=== PATIENT | male | born 1985 | race Caucasian/White ===

== ENCOUNTER 2023-03-07 09:27 | Inpatient (IN) | payer SELFPAY ==
[2023-03-07] MEDS ORDERED: Sodium Chloride 0.9% 1,000 ML IV ONE ×3 (09:42→13:18)
[2023-03-07 09:50] LABS: HEMATOCRIT 48.1 % (38.0-50.0); HEMOGLOBIN 14.8 g/dL (13.0-17.0); MEAN CORPUSCULAR HEMOGLOBIN 31.2 pg (27.0-32.0); MEAN CORPUSCULAR HGB CONC 30.8 g/dL (31.0-37.0); MEAN CORPUSCULAR VOLUME 101.3 fL (80.0-98.0); NRBC ABSOLUTE 0 K/uL; PLATELET COUNT,PLT 320 K/uL (150-400); RED BLOOD CELL COUNT 4.75 M/uL (4.50-5.90); WHITE BLOOD CELL COUNT,WBC 47.05 K/uL (4.0-11.0)
[2023-03-07 10:15] LABS: BAND ABSOLUTE MAN 2.8; BAND PERCENT MAN 6 %; LYMPHOCYTES ABSOLUTE MAN 2.8 (0.6-2.4); LYMPHOCYTES PERCENT MAN 6 % (16.0-40.0); METAMYELOCYTE ABSOLUTE MAN 1.9; METAMYELOCYTE PERCENT MAN 4 %; MONOCYTES ABSOLUTE MAN 5.2 (0.0-0.8); MONOCYTES PERCENT MAN 11 % (0.0-15.0); MYELOCYTE ABSOLUTE MAN 0.9; MYELOCYTE PERCENT MAN 2 %; SEG NEUTROPHILS ABSOLUTE MAN 33.4 (1.4-5.7); SEG NEUTROPHILS PERCENT MAN 71 % (48.0-80.0)
[2023-03-07 10:35] LABS: A/G RATIO 1.2 (0.9-1.6); ALBUMIN 4.5 g/dL (3.4-5.0); BILIRUBIN TOTAL 0.7 mg/dL (0.2-1.0); CALCIUM 9.2 mg/dL (8.5-10.1); CARBON DIOXIDE,CO2 5.3 mmol/L (21.0-32.0); CREATININE 2.7 mg/dL (0.8-1.3); EST CRCL DRUG DOSING (CG) 46.44 mL/min; MAGNESIUM 3.1 mg/dL (1.8-2.4); PHOSPHORUS 8.4 mg/dL (2.6-4.7); PROTEIN TOTAL,TP 8.3 g/dL (6.4-8.2)
[2023-03-07 10:35] LABS: APPEARANCE,URINE CLEAR; BILIRUBIN,URINE NEGATIVE (NEGATIVE); COLOR,URINE YELLOW; GLUCOSE,URINE >=1000 mg/dL (NEGATIVE); KETONES,URINE 40 mg/dL (NEGATIVE); LEUKOCYTE ESTERASE,URINE NEGATIVE (NEGATIVE); NITRITE,URINE NEGATIVE (NEGATIVE); OCCULT BLOOD,URINE SMALL (NEGATIVE); PH,URINE 5.5 (5.0-8.0); PROTEIN,URINE NEGATIVE (NEGATIVE); UROBILINOGEN,URINE 0.2 EU/dL (<2.0)
[2023-03-07 10:42] LABS: BACTERIA,URINE FEW (NEGATIVE); EPITHELIAL CELLS,URINE OCCASIONAL (NONE-FEW); RBC,URINE 0-2 (0-2/HPF); WBC,URINE 0-2 (0-5/HPF)
[2023-03-07 10:49] LABS: POTASSIUM,K 7.2 mmol/L (3.5-5.1)
[2023-03-07] MEDS: Insulin Regular in 0.9 % NACL 100 ML IV SCH ×2 (10:52→17:33)
[2023-03-07] MEDS ORDERED: Sodium Chloride 0.9% 1,000 ML IV SCH ×3 (11:15→19:45)
[2023-03-07 11:42] LABS: CALCIUM 8.5 mg/dL (8.5-10.1); CREATININE 2.7 mg/dL (0.8-1.3); EST CRCL DRUG DOSING (CG) 46.44 mL/min
[2023-03-07 11:57] LABS: CARBON DIOXIDE,CO2 4.4 mmol/L (21.0-32.0)
[2023-03-07] MEDS ORDERED: Ondansetron 4 MG/2 ML SDV IVPUSH PRN (12:41)
[2023-03-07 12:50] LABS: BASE EXCESS ARTERIAL -25.6 (-2.0-3.0); BICARBONATE,ARTERIAL 4 mEq/L (22-26); PCO2 ARTERIAL 16 mmHG (35-45); PO2 ARTERIAL 107 mmHG (80-105)
[2023-03-07] MEDS: Enoxaparin 40 MG/0.4 ML Syringe SUBCUT SCH (13:53)
[2023-03-07 13:59] LABS: CALCIUM 8.5 mg/dL (8.5-10.1); CARBON DIOXIDE,CO2 6.9 mmol/L (21.0-32.0); CREATININE 2.7 mg/dL (0.8-1.3); EST CRCL DRUG DOSING (CG) 46.44 mL/min; POTASSIUM,K 5.5 mmol/L (3.5-5.1)
[2023-03-07 15:46] LABS: CALCIUM 8.4 mg/dL (8.5-10.1); CARBON DIOXIDE,CO2 9.4 mmol/L (21.0-32.0); CREATININE 2.5 mg/dL (0.8-1.3); EST CRCL DRUG DOSING (CG) 50.15 mL/min
[2023-03-07 16:03] LABS: HEMOGLOBIN A1C 7.3 %
[2023-03-07 17:54] LABS: CALCIUM 8.4 mg/dL (8.5-10.1); CARBON DIOXIDE,CO2 9.2 mmol/L (21.0-32.0); CREATININE 2.1 mg/dL (0.8-1.3); EST CRCL DRUG DOSING (CG) 59.7 mL/min; POTASSIUM,K 4.9 mmol/L (3.5-5.1)
[2023-03-07 19:45] LABS: CALCIUM 8.4 mg/dL (8.5-10.1); CARBON DIOXIDE,CO2 14.6 mmol/L (21.0-32.0); EST CRCL DRUG DOSING (CG) 62.69 mL/min; POTASSIUM,K 4.4 mmol/L (3.5-5.1)
[2023-03-07] MEDS: Dextrose 5%-0.45% NaCl 1,000 ML IV SCH (22:16)
[2023-03-07 23:48] LABS: CALCIUM 8.3 mg/dL (8.5-10.1); CARBON DIOXIDE,CO2 18.3 mmol/L (21.0-32.0); CREATININE 1.7 mg/dL (0.8-1.3); EST CRCL DRUG DOSING (CG) 73.75 mL/min; POTASSIUM,K 4.5 mmol/L (3.5-5.1)
[2023-03-08 04:10] LABS: CALCIUM 8.3 mg/dL (8.5-10.1); CARBON DIOXIDE,CO2 20.2 mmol/L (21.0-32.0); CREATININE 1.5 mg/dL (0.8-1.3); EST CRCL DRUG DOSING (CG) 83.59 mL/min; POTASSIUM,K 4.3 mmol/L (3.5-5.1)
[2023-03-08] MEDS: Dextrose 5%-0.45% NaCl 1,000 ML IV SCH ×2 (04:38→11:21)
[2023-03-08 08:42] LABS: BASOPHILS PERCENT AUTO 0.1 % (0.0-1.5); EOSINOPHILS PERCENT AUTO 0.1 % (0.0-7.0); HEMATOCRIT 35.8 % (38.0-50.0); HEMOGLOBIN 12.5 g/dL (13.0-17.0); LYMPHOCYTES ABSOLUTE AUTO 1.2 K/uL (0.6-2.4); LYMPHOCYTES PERCENT AUTO 5.4 % (16.0-40.0); MEAN CORPUSCULAR HEMOGLOBIN 31.3 pg (27.0-32.0); MEAN CORPUSCULAR HGB CONC 34.9 g/dL (31.0-37.0); MEAN CORPUSCULAR VOLUME 89.7 fL (80.0-98.0); MONOCYTES ABSOLUTE AUTO 2.5 K/uL (0.0-0.8); MONOCYTES PERCENT AUTO 11.6 % (0.0-15.0); NEUTROPHILS ABSOLUTE AUTO 17.7 K/uL (1.4-5.7); NEUTROPHILS PERCENT AUTO 82.8 % (48.0-80.0); NRBC ABSOLUTE 0 K/uL; PLATELET COUNT,PLT 178 K/uL (150-400); RED BLOOD CELL COUNT 3.99 M/uL (4.50-5.90); WHITE BLOOD CELL COUNT,WBC 21.36 K/uL (4.0-11.0)
[2023-03-08 08:55] LABS: CALCIUM 8.4 mg/dL (8.5-10.1); CARBON DIOXIDE,CO2 23.8 mmol/L (21.0-32.0); CREATININE 1.4 mg/dL (0.8-1.3); EST CRCL DRUG DOSING (CG) 89.56 mL/min; POTASSIUM,K 4.5 mmol/L (3.5-5.1)
[2023-03-08] MEDS ORDERED: 50% Dextrose in Water 50 ML Syringe IVPUSH PRN (09:28)
[2023-03-08] MEDS ORDERED: Glucagon,Human Recombinant 1 MG Vial IM PRN (09:28)
[2023-03-08] MEDS ORDERED: Insulin Detemir 100 Units/ML 3 ML Pen SUBCUT SCH (09:30)
[2023-03-08] MEDS ORDERED: Insulin Glargine,Hum.Rec.Anlog 100 UNIT/ML 3 ML Pen SUBCUT SCH (10:00)
[2023-03-08 10:31] LABS: APPEARANCE,URINE CLEAR; COLOR,URINE YELLOW; GLUCOSE,URINE 250 mg/dL (NEGATIVE); KETONES,URINE >=80 mg/dL (NEGATIVE); LEUKOCYTE ESTERASE,URINE NEGATIVE (NEGATIVE); NITRITE,URINE NEGATIVE (NEGATIVE); OCCULT BLOOD,URINE TRACE-INTACT (NEGATIVE); PROTEIN,URINE NEGATIVE (NEGATIVE); UROBILINOGEN,URINE 0.2 EU/dL (<2.0)
[2023-03-08 10:33] LABS: BILIRUBIN,URINE SMALL (NEGATIVE)
[2023-03-08 10:52] LABS: BACTERIA,URINE RARE (NEGATIVE); EPITHELIAL CELLS,URINE RARE (NONE-FEW); RBC,URINE 0-2 (0-2/HPF); WBC,URINE 0-1 (0-5/HPF)
[2023-03-08 11:05] LABS: MAGNESIUM 2.5 mg/dL (1.8-2.4); PHOSPHORUS 1.8 mg/dL (2.6-4.7)
[2023-03-08] MEDS: Insulin Regular in 0.9 % NACL 100 ML IV SCH (11:25)
[2023-03-08] MEDS ORDERED: Insulin Aspart 100 Units/ML 3 ML Pen SUBCUT SCH (11:30)
[2023-03-08] MEDS: Insulin Aspart 100 Units/ML 3 ML Pen SUBCUT SCH ×4 (11:41→21:42)
[2023-03-08] MEDS: Insulin Glargine,Hum.Rec.Anlog 100 UNIT/ML 3 ML Pen SUBCUT SCH ×2 (11:41→21:42)
[2023-03-08] MEDS: Enoxaparin 40 MG/0.4 ML Syringe SUBCUT SCH (12:49)
[2023-03-08] MEDS: Sodium Chloride 0.45% 1,000 ML IV SCH (18:01)
[2023-03-09] MEDS: Sodium Chloride 0.45% 1,000 ML IV SCH (03:51)
[2023-03-09 05:49] LABS: BASOPHILS PERCENT AUTO 0.2 % (0.0-1.5); EOSINOPHILS ABSOLUTE AUTO 0.1 K/uL (0.0-0.7); EOSINOPHILS PERCENT AUTO 1.1 % (0.0-7.0); HEMATOCRIT 34.4 % (38.0-50.0); HEMOGLOBIN 11.9 g/dL (13.0-17.0); LYMPHOCYTES ABSOLUTE AUTO 1.5 K/uL (0.6-2.4); LYMPHOCYTES PERCENT AUTO 16.9 % (16.0-40.0); MEAN CORPUSCULAR HEMOGLOBIN 30.9 pg (27.0-32.0); MEAN CORPUSCULAR HGB CONC 34.6 g/dL (31.0-37.0); MEAN CORPUSCULAR VOLUME 89.4 fL (80.0-98.0); MONOCYTES ABSOLUTE AUTO 0.9 K/uL (0.0-0.8); MONOCYTES PERCENT AUTO 10.5 % (0.0-15.0); NEUTROPHILS ABSOLUTE AUTO 6.4 K/uL (1.4-5.7); NEUTROPHILS PERCENT AUTO 71.3 % (48.0-80.0); NRBC ABSOLUTE 0 K/uL; PLATELET COUNT,PLT 126 K/uL (150-400); RED BLOOD CELL COUNT 3.85 M/uL (4.50-5.90); WHITE BLOOD CELL COUNT,WBC 8.94 K/uL (4.0-11.0)
[2023-03-09 06:12] LABS: CALCIUM 8.2 mg/dL (8.5-10.1); CARBON DIOXIDE,CO2 24.9 mmol/L (21.0-32.0); CREATININE 0.9 mg/dL (0.8-1.3); EST CRCL DRUG DOSING (CG) 139.31 mL/min; POTASSIUM,K 3.9 mmol/L (3.5-5.1)
[2023-03-09] MEDS: Insulin Aspart 100 Units/ML 3 ML Pen SUBCUT SCH ×2 (08:43→08:44)
[2023-03-09] MEDS: Insulin Glargine,Hum.Rec.Anlog 100 UNIT/ML 3 ML Pen SUBCUT SCH (09:30)
== END 2023-03-09 11:20 | disposition home or self-care (01) | DRG 637 ==
LOC: MW.ED 09:27 → MW.ICU 12:23 → MW.MS 03-08 17:13
PROVIDERS: ADMIT Hospitalist; ATTEND Hospitalist
DX: E10.10 Type 1 diabetes mellitus with ketoacidosis without coma (principal); R65.11 Systemic inflammatory response syndrome (SIRS) of non-infectious origin with acute organ dysfunction; N17.9 Acute kidney failure, unspecified; F17.210 Nicotine dependence, cigarettes, uncomplicated; E83.39 Other disorders of phosphorus metabolism; E83.41 Hypermagnesemia; R79.89 Other specified abnormal findings of blood chemistry; E87.5 Hyperkalemia; Z98.890 Other specified postprocedural states; Z79.899 Other long term (current) drug therapy; Z79.4 Long term (current) use of insulin; Z91.148 Patient's other noncompliance with medication regimen for other reason
CPT/HCPCS: 36415; 36600; 71045; 71045-26; 80048; 80053; 81001; 82803; 82947; 83036; 83735; 84100; 85025; 96360; 99291; A9270-GY; J1650; J1815; J1815-GY; J7030; J7042